=== PATIENT | female | born 1985 | race Caucasian/White ===

== ENCOUNTER → 2020-08-26 18:46 | Outpatient (CLI) | payer OTHER, MEDICAID, SELFPAY ==
--- NOTE | 2020-08-26 | DI.CT.S_ITS ---
PROCEDURE: CT SINUS SCREEN WO CON INDICATIONS: other specified disorders of nose and nasal sinuses TECHNIQUE: Noncontrast 3.0 mm axial images acquired from the frontal sinuses to the mid-sella, with coronal and sagittal reformats. For radiation dose reduction, the following was used: automated exposure control, adjustment of mA and/or kV according to patient size. COMPARISON: None. FINDINGS: Image quality: Excellent. Sinuses: There is complete right and near complete left opacification of the right maxillary sinuses. There is near complete opacification of the ethmoid air cells. Very minimal mucosal thickening is present within the frontal and sphenoid sinuses. It is noted that there is a slight frothy appearance identified within the superior aspect of the left maxillary sinus. No osseous erosions. Ostiomeatal Complexes: Ostiomeatal complexes completely occluded Miscellaneous: Visualized intra-orbital contents are normal. There is a questionable appearance of paradoxical right middle turbinate. However, it is poorly characterized secondary to 6 significant overlying mucosal thickening. Similar appearance with a right middle turbinates ruth bullosa. Leftward nasal septal deviation. IMPRESSION: 1. Significant sinus disease within the ethmoid and maxillary sinuses as above. Mild appearance of frothy fluid is noted in the left maxillary sinus suggestive of acute on chronic sinusitis. 2. Ostiomeatal complexes are occluded bilaterally. Dictated by: Guillermina Carvajal M.D. on 08/27/2020 at 8:21 Approved by: Guillermina Carvajal M.D. on 08/27/2020 at 8:24
== END ==
PROVIDERS: Referring Provider Otolaryngology; Visit Provider Otolaryngology
DX: J34.2 Deviated nasal septum (principal); J34.89 Other specified disorders of nose and nasal sinuses; R51.9 Headache, unspecified
CPT/HCPCS: 70486